=== PATIENT | male | born 1995 | race Caucasian/White ===

== ENCOUNTER 2017-01-01 14:00 | Emergency (ER) | payer OTHER ==
[~2017-01-01] VITALS: Ht 190.5 cm; Wt 76.0 kg
[2017-01-01 14:05] VITALS: BP 141/82
== END 2017-01-01 17:50 | disposition home or self-care (01) ==
LOC: ED 14:00
DX: R10.9 Unspecified abdominal pain (principal); R11.10 Vomiting, unspecified; R19.7 Diarrhea, unspecified; Z90.49 Acquired absence of other specified parts of digestive tract

== ENCOUNTER 2018-07-25 23:23 | Emergency (ER) | payer OTHER ==
[~2018-07-25] VITALS: Ht 190.5 cm; Wt 79.6 kg
[2018-07-25 23:28] VITALS: Ht 190.5 cm; Wt 79.6 kg
[2018-07-26 00:12] VITALS: BP 156/78
== END 2018-07-26 00:12 | disposition home or self-care (01) ==
LOC: ED 23:23
DX: K29.70 Gastritis, unspecified, without bleeding (principal); R42 Dizziness and giddiness; R03.0 Elevated blood-pressure reading, without diagnosis of hypertension; Z90.89 Acquired absence of other organs; Z98.890 Other specified postprocedural states